=== PATIENT | female | born 1965 | race Two or more races ===

== ENCOUNTER 2019-06-01 10:02 | Emergency (ER) | payer OTHER ==
[~2019-06-01] VITALS: Ht 162.6 cm; Wt 69.9 kg
[2019-06-01] MEDS ORDERED: DOXYCYCLINE HY100 MG PO (15:46)
== END 2019-06-01 15:47 | disposition home or self-care (01) ==
LOC: ER 10:02
DX: B34.9 Viral infection, unspecified (principal)

== ENCOUNTER 2024-03-05 11:40 | Emergency (ER) | payer OTHER ==
[~2024-03-05] VITALS: Ht 162.6 cm; Wt 65.8 kg
[~2024-03-05 11:40] MED LIST: DOXYCYCLINE HY100 MG PO
[2024-03-05] MEDS ORDERED: ZOVIRAX5 GM TOP (12:30)
[2024-03-05] MEDS ORDERED: ZOVIRAX800 MG PO (12:30)
[2024-03-05] MEDS ORDERED: NEURONTIN300 MG PO (12:32)
== END 2024-03-05 12:34 | disposition home or self-care (01) ==
LOC: ER 11:42
DX: B02.9 Zoster without complications (principal); Z88.0 Allergy status to penicillin; Z85.3 Personal history of malignant neoplasm of breast

== ENCOUNTER 2024-03-13 10:16 | Emergency (ER) | payer OTHER ==
[~2024-03-13] VITALS: Ht 162.6 cm; Wt 65.8 kg
[~2024-03-13 10:16] MED LIST changes: +NEURONTIN300 MG PO; +ZOVIRAX5 GM TOP; +ZOVIRAX800 MG PO
[2024-03-13] MEDS ORDERED: DIPHENHYDRAMINE HCL 50 MG/ML VIAL 1ML IM ONE (10:45)
[2024-03-13] MEDS ORDERED: METHYLPREDNISOLONE SOD SUCC 40 MG VIAL IM ONE (10:45)
[2024-03-13] MEDS ORDERED: ACYCLOVIR TOP ONE (11:00)
== END 2024-03-13 11:55 | disposition home or self-care (01) ==
LOC: ER 10:18
DX: B02.9 Zoster without complications (principal); Z88.0 Allergy status to penicillin; Z85.3 Personal history of malignant neoplasm of breast